=== PATIENT | male | born 1975 ===

== ENCOUNTER 2025-02-15 20:41 | Emergency (ER) | payer MEDICAID ==
[~2025-02-15] VITALS: Ht 185.4 cm; Wt 72.7 kg
[2025-02-15 20:52] VITALS: TEMP 97.6
[2025-02-15] MEDS: LIDOCAINE 5% TRANSDERMAL PATCH TD ONE (22:06)
[2025-02-15] MEDS: KETOROLAC TROMETHAMINE 30 MG/ML VIAL IM ONE (22:08)
[2025-02-15] MEDS ORDERED: IBUP-1492 PO (22:27)
[2025-02-15 22:29] VITALS: BP 150/90; PULSE 95; RESP 16; O2SAT 95
== END 2025-02-15 22:51 | disposition home or self-care (01) ==
LOC: EMS 20:41
DX: S81.802A Unspecified open wound, left lower leg, initial encounter (principal); S13.9XXA Sprain of joints and ligaments of unspecified parts of neck, initial encounter; F31.9 Bipolar disorder, unspecified; W22.8XXA Striking against or struck by other objects, initial encounter; Y93.67 Activity, basketball; Y93.89 Activity, other specified; Y92.89 Other specified places as the place of occurrence of the external cause; Y99.8 Other external cause status
CPT/HCPCS: 99283; 96372; J1885